=== PATIENT | female | born 1970 | race Caucasian/White ===

== ENCOUNTER 2020-04-28 19:46 | Emergency (ER) | payer OTHER ==
[~2020-04-28] VITALS: Ht 165.1 cm; Wt 61.2 kg
[2020-04-28] MEDS ORDERED: VENLAFAXINE HCL75 M1 PO (19:54)
[2020-04-28] MEDS ORDERED: EFFEXOR XR75 MG PO (19:55)
== END 2020-04-28 22:54 | disposition home or self-care (01) ==
LOC: ER 19:46
DX: S93.401A Sprain of unspecified ligament of right ankle, initial encounter (principal); X50.3XXA Overexertion from repetitive movements, initial encounter; Y93.89 Activity, other specified; Y92.89 Other specified places as the place of occurrence of the external cause; Y99.8 Other external cause status

== ENCOUNTER 2020-12-20 11:29 | Outpatient (CLI) | payer OTHER ==
[~2020-12-20 11:29] MED LIST: EFFEXOR XR75 MG PO; VENLAFAXINE HCL75 M1 PO
== END 2020-12-20 11:35 | disposition home or self-care (01) ==
LOC: NUCLEAR 11:29
PROVIDERS: ATTEND Orthopaedic Surgery
DX: M79.671 Pain in right foot (principal)
CPT/HCPCS: 78315; A9503